=== PATIENT | female | born 1935 | race Caucasian/White ===

== ENCOUNTER → 2016-04-27 | Day surgery (SDC) | payer MEDICARE, OTHER ==
[~2016-04-27] MED LIST: ASPIRIN CHEWABL81 MG PO; ATIVAN1 MG PO; BROVANA15 MCG/2 M INH; BYSTOLIC10 MG PO; CERTAGEN1 EACH PO; EFFEXOR XR150 MG PO; FEOSOL325 MG PO; HCTZ12.5 MG PO; KLOR-CON M 1010 MEQ PO; NORCO 5-325 TA1 EACH PO; NORVASC5 MG PO; SYMBICORT 16010.2 GM INH; TIME SLEEP AID PO
[2016-04-27 09:28] LABS: HCT 38.7 % (37.0-47.0); HGB 11.8 g/dl (12.5-16.0); MCH 30.2 pg (25.0-31.0); MCHC 30.5 g/dL (32.0-36.0); MPV 8.9 fL (6.0-9.5); RBC 3.91 M/uL (4.20-5.40); RDW 14.5 % (11.5-14.0); WBC 9.4 K/uL (4.0-10.5)
[2016-04-27 09:46] LABS: ALBUMIN 4.4 g/dL (3.4-4.8); BILIRUBIN - TOTAL 0.2 mg/dL (0.1-1.0); CREATININE 0.6 mg/dL (0.5-1.0); GLOBULIN (CALCULATION) 2.1 g/dL (2.2-4.2); POTASSIUM 3.7 mmol/L (3.5-5.1); TOTAL PROTEIN 6.5 g/dL (6.4-8.3)
== END | disposition home or self-care (01) ==
LOC: FAS 07:42
PROVIDERS: Surgery
DX: K29.40 Chronic atrophic gastritis without bleeding (principal); K21.0 Gastro-esophageal reflux disease with esophagitis; K44.9 Diaphragmatic hernia without obstruction or gangrene; D50.0 Iron deficiency anemia secondary to blood loss (chronic); D64.9 Anemia, unspecified; M19.90 Unspecified osteoarthritis, unspecified site; I10 Essential (primary) hypertension; Z98.890 Other specified postprocedural states; Z79.82 Long term (current) use of aspirin; Z79.899 Other long term (current) drug therapy
CPT/HCPCS: 36415; 80053; 88305; 88312; J2704

== ENCOUNTER 2016-07-06 08:00 | Emergency (ER) | payer MEDICARE, OTHER ==
[2016-07-06 09:16] LABS: BASOPHIL 0.1 % (0-2); EOSINOPHIL 0.5 % (0-7); HCT 43.5 % (37.0-47.0); LYMPHOCYTE 7.9 % (15-48); MCH 30.1 pg (25.0-31.0); MCHC 32.2 g/dL (32.0-36.0); MCV 93.5 fL (78.0-100.0); MONOCYTE 8.1 % (0-12); MPV 9.2 fL (6.0-9.5); NEUTROPHIL 83.4 % (41-80); PLT 333 K/uL (150-400); RBC 4.65 M/uL (4.20-5.40); RDW 14.1 % (11.5-14.0); WBC 13.9 K/uL (4.0-10.5)
[2016-07-06 09:34] LABS: ALBUMIN 4.1 g/dL (3.4-4.8); BILIRUBIN - TOTAL 0.3 mg/dL (0.1-1.0); CREATININE 0.7 mg/dL (0.5-1.0); GLOBULIN (CALCULATION) 2.6 g/dL (2.2-4.2); TOTAL PROTEIN 6.7 g/dL (6.4-8.3)
[2016-07-06 10:12] LABS: BILIRUBIN NEGATIVE (NEGATIVE); BLOOD NEGATIVE Ery/uL (NEGATIVE); CLARITY CLEAR (CLEAR); COLOR YELLOW (YELLOW); GLUCOSE (U) NORMAL (NORMAL); KETONE (U) NEGATIVE (NEGATIVE); LEUKOCYTES 1+ Leu/uL (NEGATIVE); NITRITE NEGATIVE (NEGATIVE); PROTEIN TRACE (LOW) mg/dL (NEGATIVE); SPECIFIC GRAVITY 1.025 (1.001-1.030); UROBILINOGEN 0.2 mg/dL (0.2-1.0); pH 5.5 (5.0-9.0)
[2016-07-06 10:15] LABS: BACTERIA TRACE; URINARY RBC RARE
[2016-07-06 10:16] LABS: AMORPHOUS URATES CRYSTALS TRACE
== END 2016-07-06 16:14 | disposition home or self-care (01) ==
LOC: FER 08:00
PROVIDERS: Internal Medicine
DX: T79.6XXA Traumatic ischemia of muscle, initial encounter (principal); I10 Essential (primary) hypertension; J44.9 Chronic obstructive pulmonary disease, unspecified; Z86.73 Personal history of transient ischemic attack (TIA), and cerebral infarction without residual deficits; Z79.899 Other long term (current) drug therapy; W18.30XA Fall on same level, unspecified, initial encounter
CPT/HCPCS: 36415; 70450; 72072; 72100; 80053; 81001; 82550; 85025; 93005

== ENCOUNTER 2016-07-30 07:40 | Inpatient (IN) | payer MEDICARE, OTHER ==
[~2016-07-30] VITALS: Ht 162.6 cm; Wt 75.9 kg
[2016-07-30 10:23] LABS: INR 1.06 (0.9-1.2); PROTHROMBIN TIME 13.4 SECONDS (11.7-14.0); PTT 31.1 SECONDS (23.2-31.4)
[2016-07-30 10:24] LABS: BASOPHIL 0.1 % (0-2); EOSINOPHIL 0.2 % (0-7); HCT 40.9 % (37.0-47.0); HGB 13.5 g/dl (12.5-16.0); LYMPHOCYTE 8.6 % (15-48); MCH 30.5 pg (25.0-31.0); MCV 92.3 fL (78.0-100.0); MONOCYTE 9.3 % (0-12); MPV 9.2 fL (6.0-9.5); NEUTROPHIL 81.8 % (41-80); PLT 305 K/uL (150-400); RBC 4.43 M/uL (4.20-5.40); RDW 14.3 % (11.5-14.0); WBC 10.2 K/uL (4.0-10.5)
[2016-07-30 10:30] LABS: ALBUMIN 3.7 g/dL (3.4-4.8); BILIRUBIN - TOTAL 0.4 mg/dL (0.1-1.0); CREATININE 0.5 mg/dL (0.5-1.0); GLOBULIN (CALCULATION) 2.7 g/dL (2.2-4.2); POTASSIUM 3.6 mmol/L (3.5-5.1); TOTAL PROTEIN 6.4 g/dL (6.4-8.3)
[2016-07-30 11:06] LABS: BILIRUBIN NEGATIVE (NEGATIVE); BLOOD 1+ Ery/uL (NEGATIVE); CLARITY CLEAR (CLEAR); COLOR YELLOW (YELLOW); GLUCOSE (U) NORMAL (NORMAL); KETONE (U) NEGATIVE (NEGATIVE); LEUKOCYTES NEGATIVE Leu/uL (NEGATIVE); NITRITE NEGATIVE (NEGATIVE); PROTEIN TRACE (LOW) mg/dL (NEGATIVE); SPECIFIC GRAVITY 1.025 (1.001-1.030); UROBILINOGEN 0.2 mg/dL (0.2-1.0); pH 6.5 (5.0-9.0)
[2016-07-30 11:30] LABS: BACTERIA TRACE
[2016-07-30 22:43] LABS: TROPONIN T < 0.010 ng/mL
[2016-07-30 22:56] LABS: CKMB 5.65 ng/mL (0.97-4.94)
[2016-07-31 01:10] LABS: AMPHETAMINES NEGATIVE (NEGATIVE); BARBITURATES NEGATIVE (NEGATIVE); BENZODIAZEPINES POSITIVE (NEGATIVE); COCAINE NEGATIVE (NEGATIVE); MARIJUANA (THC) NEGATIVE (NEGATIVE); METHADONE NEGATIVE (NEGATIVE); TRICYCLIC ANTIDEPRESSANT NEGATIVE (NEGATIVE)
[2016-07-31 06:11] LABS: BASOPHIL 0.2 % (0-2); EOSINOPHIL 1.6 % (0-7); HCT 38.7 % (37.0-47.0); HGB 12.6 g/dl (12.5-16.0); LYMPHOCYTE 8.9 % (15-48); MCH 30.4 pg (25.0-31.0); MCHC 32.6 g/dL (32.0-36.0); MCV 93.5 fL (78.0-100.0); MONOCYTE 11.6 % (0-12); MPV 9.4 fL (6.0-9.5); NEUTROPHIL 77.7 % (41-80); PLT 287 K/uL (150-400); RBC 4.14 M/uL (4.20-5.40); RDW 14.5 % (11.5-14.0); WBC 8.4 K/uL (4.0-10.5)
--- NOTE | 2016-07-31 06:23 | NUR ---
I+0 CATH OUT PUT 300.
[2016-07-31 06:27] LABS: TROPONIN T < 0.010 ng/mL
[2016-07-31 06:29] LABS: CREATININE 0.7 mg/dL (0.5-1.0); POTASSIUM 3.6 mmol/L (3.5-5.1)
[2016-07-31 06:47] LABS: CKMB 5.24 ng/mL (0.97-4.94)
[2016-08-03 06:49] LABS: BASOPHIL 0.4 % (0-2); EOSINOPHIL 1.7 % (0-7); HCT 35.2 % (37.0-47.0); HGB 11.4 g/dl (12.5-16.0); LYMPHOCYTE 13.6 % (15-48); MCHC 32.4 g/dL (32.0-36.0); MCV 95.7 fL (78.0-100.0); MPV 9.4 fL (6.0-9.5); NEUTROPHIL 70.3 % (41-80); PLT 266 K/uL (150-400); RBC 3.68 M/uL (4.20-5.40); RDW 14.7 % (11.5-14.0); WBC 8.4 K/uL (4.0-10.5)
[2016-08-03 07:08] LABS: CREATININE 0.5 mg/dL (0.5-1.0); MAGNESIUM 1.89 mg/dL (1.40-2.10); POTASSIUM 3.4 mmol/L (3.5-5.1)
[2016-08-03] MEDS ORDERED: NORCO 5-325 TA1 EACH PO (13:42)
[2016-08-03] MEDS ORDERED: BYSTOLIC10 MG PO (13:43)
[2016-08-03] MEDS ORDERED: ATIVAN1 MG PO (13:44)
[2016-08-03] MEDS ORDERED: HCTZ12.5 MG PO (13:44)
[2016-08-03] MEDS ORDERED: ASPIRIN CHEWABL81 MG PO (13:45)
[2016-08-03] MEDS ORDERED: NORVASC5 MG PO (13:45)
[2016-08-03] MEDS ORDERED: BROVANA15 MCG/2 M INH (13:46)
[2016-08-03] MEDS ORDERED: TIME SLEEP AID PO (13:46)
[2016-08-03] MEDS ORDERED: SYMBICORT 16010.2 GM INH (13:47)
[2016-08-03] MEDS ORDERED: EFFEXOR XR150 MG PO (13:47)
[2016-08-03] MEDS ORDERED: CERTAGEN1 EACH PO (13:48)
[2016-08-03] MEDS ORDERED: FEOSOL325 MG PO (13:48)
[2016-08-03] MEDS ORDERED: KLOR-CON M 1010 MEQ PO (13:48)
== END 2016-08-03 19:28 | DRG 551 ==
LOC: FER 07:40 → FMS 10:59
PROVIDERS: Emergency Medicine; Nurse Practitioner; ADMIT Internal Medicine
PROC: 02H633Z Insertion of Infusion Device into Right Atrium, Percutaneous Approach (ICD-10-PCS; principal; 2016-07-30)
DX: S22.089A Unspecified fracture of T11-T12 vertebra, initial encounter for closed fracture (principal); G93.41 Metabolic encephalopathy; Z99.81 Dependence on supplemental oxygen; I11.0 Hypertensive heart disease with heart failure; I50.32 Chronic diastolic (congestive) heart failure; R55 Syncope and collapse; F32.9 Major depressive disorder, single episode, unspecified; J44.9 Chronic obstructive pulmonary disease, unspecified; E78.5 Hyperlipidemia, unspecified; W19.XXXA Unspecified fall, initial encounter; Y92.009 Unspecified place in unspecified non-institutional (private) residence as the place of occurrence of the external cause; E87.6 Hypokalemia; E83.51 Hypocalcemia; D64.9 Anemia, unspecified; I34.0 Nonrheumatic mitral (valve) insufficiency; I16.0 Hypertensive urgency; M85.88 Other specified disorders of bone density and structure, other site; M51.34 Other intervertebral disc degeneration, thoracic region; Z90.12 Acquired absence of left breast and nipple; Z86.73 Personal history of transient ischemic attack (TIA), and cerebral infarction without residual deficits; Z85.3 Personal history of malignant neoplasm of breast; Z87.891 Personal history of nicotine dependence
CPT/HCPCS: 36415; 70450; 71010; 72131; 72170; 80048; 80053; 80305; 81001; 82550; 82553; 83735; 83880; 84484; 85025; 85610; 85730; 93005; 93880; 94010; 94640; 97110; 97116; 97162; 97166; 97530-GP; 97535; G0378; J1885